=== PATIENT | female | born 2000 | race Caucasian/White ===

== ENCOUNTER 2025-07-01 16:15 | Emergency (ER) | payer OTHER ==
[~2025-07-01] VITALS: Ht 160 cm; Wt 52.2 kg
[2025-07-01 17:05] LABS: PLATELET COUNT (AUTO) 254 K/uL (150-450); RED BLOOD CELL COUNT(AUTO) 4.12 MIL/uL (4.0-5.2); RED CELL DISTRIBUTION WIDTH 13.9 % (11.5-15.0); WHITE BLOOD COUNT (AUTO) 10.6 K/uL (4.3-11.0)
[2025-07-01 17:11] LABS: APPEARANCE,URINE CLEAR (CLEAR); BLOOD, URINE Negative Ery/uL (NEGATIVE); LEUKOCYTE ESTERASE ,URINE Negative (NEGATIVE); UGLUCOSE Negative (NEGATIVE)
[2025-07-01 17:12] LABS: CALCIUM, SERUM 8.9 mg/dL (8.5-10.1); CREATININE 0.5 mg/dL (0.6-1.3); SODIUM SERUM 136.0 mmol/L (136-145); UREA NITROGEN, BLOOD 10.0 mg/dL (7-18)
[2025-07-01 17:15] LABS: NITRITE, URINE NEGATIVE (NEGATIVE)
[2025-07-01 17:16] LABS: ADD URINE CULTURE NO; PREGNANCY TEST URINE QUAL NEGATIVE (NEGATIVE); SQUAMOUS EPITHELIAL CELL,UR Few /HPF (None Seen)
[2025-07-01 17:18] LABS: ASPARTATE AMINOTRANSFERASE 9.0 U/L (15-37); TOTAL PROTEIN, SERUM 7.0 g/dL (6.4-8.2)
[2025-07-01] MEDS ORDERED: BISA10SU11 RC (17:39)
[2025-07-01] MEDS ORDERED: POLY119P PO (17:39)
[2025-07-01 17:57] VITALS: BP 128/72; TEMP 98; O2SAT 99
== END 2025-07-01 17:57 | disposition home or self-care (01) ==
LOC: ER 16:28
DX: K59.00 Constipation, unspecified (principal)
CPT/HCPCS: 36415; 80048-TC; 80076-TC; 81001; 83690-TC; 84703-TC; 85025-TC; 87086-TC